=== PATIENT | male | born 1950 | race Caucasian/White ===

== ENCOUNTER → 2016-12-05 | Outpatient (CLI) | payer BC ==
[2016-12-05 12:52] LABS: BASO % 0.4 %; BASO ABS # 0.02 K/uL (0-0.2); COMPLETE YES; EOS % 1.2 %; HEMATOCRIT 41.1 % (42-52); IG% 0.2 %; LYMPH % 31.2 %; LYMPH ABS # 1.76 K/uL (1.2-3.4); MEAN CORPUSCULAR HEMOGLOBIN 27.2 pg (25-34); MEAN CORPUSCULAR HGB CONC 34.1 g/dl (32-36); MEAN PLATELET VOLUME 9.2 fL (7.4-10.4); MONO % 6.9 %; NEUT % 60.1 %; PLATELET COUNT 203 K/uL (130-400); RED BLOOD COUNT 5.14 M/uL (4.7-6.1); WHITE BLOOD COUNT 5.65 K/uL (4.8-10.8)
[2016-12-05 12:53] LABS: URINE APPEARANCE CLEAR (CLEAR); URINE BILIRUBIN NEG (NEG); URINE COLOR YELLOW; URINE EPITHELIAL CELL AUTO 0-5 /lpf (0-5); URINE NITRITE NEG (NEG); URINE SPECIFIC GRAVITY 1.021 (1.000-1.030); UROBILINOGEN NEG (NEG)
[2016-12-05 12:57] LABS: MANUAL MICROSCOPIC REQUIRED? NO; REVIEW REQ? YES
[2016-12-05 18:06] LABS: ALT/SGPT 26 U/L (12-78); BLOOD UREA NITROGEN 13 mg/dl (7-18); BUN/CREATININE RATIO 12.5 (10-20); CALCIUM 8.7 mg/dl (8.5-10.1); CARBON DIOXIDE 26 mmol/L (21-32); CHLORIDE 104 mmol/L (98-107); CHOLESTEROL 141 mg/dl (0-200); GLUCOSE 110 mg/dl (70-99); POTASSIUM 3.4 mmol/L (3.5-5.1); SODIUM 141 mmol/L (136-145); TRIGLYCERIDES 133 mg/dl (0-150); VERY LOW DENSITY LIPOPROT CALC 27 mg/dl
[2016-12-05 18:11] LABS: ALB/GLOB RATIO 1.1 (0.9-2); ALKALINE PHOSPHATASE 67 U/L (45-117); AST/SGOT 21 U/L (15-37); CHOLESTEROL/HDL RATIO 3.1; HDL CHOLESTEROL 45 mg/dl; LDL CHOLESTEROL CALCULATED 69 mg/dl
== END | disposition home or self-care (01) ==
LOC: C.LABBFT 11:17
PROVIDERS: ATTEND Internal Medicine Pulmonary Disease
DX: Z12.5 Encounter for screening for malignant neoplasm of prostate (principal); M50.90 Cervical disc disorder, unspecified, unspecified cervical region; E78.5 Hyperlipidemia, unspecified; I10 Essential (primary) hypertension

== ENCOUNTER → 2017-05-14 | Outpatient (CLI) | payer BC ==
--- NOTE | 2017-05-14 17:56 | DIAGNOSTIC IMAGING REPORT ---
MRI OF THE RIGHT HIP WITHOUT CONTRAST CLINICAL HISTORY: Right hip pain. Evaluate for osteoarthritis or avascular necrosis. COMPARISON STUDY: Pelvis and right hip radiographs May 09, 2017. TECHNIQUE: Utilizing a 1.5 Jacqui magnet and dedicated coil, multiplanar, multiecho imaging of the right hip was performed without intravenous or intraarticular contrast. FINDINGS: The sacroiliac joints and symphysis pubis are intact. No mass or fluid collection is shown within the pelvis. There is no pelvic lymphadenopathy. No abnormality bladder is identified. Note is made of a 2.5 cm T2 hyperintense lesion within the medial aspect of the right iliac bone adjacent to the sacroiliac joint. This is indeterminate but low suspicion. There is no suspicious marrow replacement. There is no evidence of avascular necrosis. There is moderate chondrosis of the right hip with mild subchondral signal abnormality within the right femoral head and acetabulum consistent with osteoarthritis. There is no left hip joint effusion. There is a trace right hip joint effusion. The acetabular labrum is suboptimally assessed on this nonarthrogram exam. IMPRESSION: 1. Moderate chondrosis with subchondral signal abnormality within the right acetabulum and femoral head consistent with osteoarthritis. 2. No fracture or evidence of avascular necrosis. 3. Trace right hip joint effusion. Electronically signed by: Abad Briceno M.D. 05/14/2017 5:55 PM Dictated Date/Time: 05/14/2017 3:53 PM
== END | disposition home or self-care (01) ==
LOC: C.MRIBC 14:06
PROVIDERS: ATTEND Orthopaedic Surgery Sports Medicine
DX: M25.551 Pain in right hip (principal)

== ENCOUNTER → 2017-05-23 | Outpatient (CLI) | payer BC ==
--- NOTE | 2017-05-23 12:31 | DIAGNOSTIC IMAGING REPORT ---
RIGHT HIP INJECTION UNDER FLUOROSCOPIC GUIDANCE CLINICAL HISTORY: Degenerative joint disease. Steroid injection. PROCEDURE: The risks, benefits, and alternatives to the procedure were discussed with the patient. Written informed consent was obtained. The patient was placed supine on the fluoroscopy table, and a right hip injection was performed under fluoroscopic guidance. The area was prepped and draped in the usual sterile fashion. The skin and soft tissues anesthetized with local 1% lidocaine. The right hip joint was accessed utilizing a 22-gauge needle, and intra-articular positioning was confirmed by injecting a small volume of Optiray 300. The prescribed dosage of 8 cc of 0.5% bupivacaine and 2 cc of betamethasone was then injected into the joint space. The procedure was well tolerated and without immediate complication. The patient left department in satisfactory condition. FLUOROSCOPY TIME: 14 seconds IMPRESSION: Successful steroid injection of the right hip under fluoroscopic guidance. Electronically signed by: Enzo Wilson M.D. 05/23/2017 12:29 PM Dictated Date/Time: 05/23/2017 12:28 PM
== END | disposition home or self-care (01) ==
LOC: C.RADBC 10:09
PROVIDERS: ATTEND Orthopaedic Surgery Sports Medicine
DX: M16.11 Unilateral primary osteoarthritis, right hip (principal)

== ENCOUNTER → 2017-10-16 | Outpatient (CLI) | payer BC ==
--- NOTE | 2017-10-16 13:30 | DIAGNOSTIC IMAGING REPORT ---
R INJ MAJOR JNT SHLDR,HIP,KNEE CLINICAL HISTORY: RIGHT HIP DJDpain COMPARISON STUDY: 05/23/2017 FLUOROSCOPY TIME: 11 seconds. FINDINGS: Following informed consent and description of procedure, initial placement of the needle confirmed an extra-articular location. This is followed by repositioning the needle with a test injection confirming its intra-articular location. This is followed by a therapeutic injection. There are no complications. IMPRESSION: Successful therapeutic injection right hip. No complications.. The above report was generated using voice recognition software. It may contain grammatical, syntax or spelling errors. Electronically signed by: Jeb Louis M.D. 10/16/2017 1:28 PM Dictated Date/Time: 10/16/2017 1:27 PM
== END | disposition home or self-care (01) ==
LOC: C.RADBC 12:22
PROVIDERS: ATTEND Orthopaedic Surgery Sports Medicine
DX: M16.11 Unilateral primary osteoarthritis, right hip (principal)

== ENCOUNTER → 2017-12-24 | Outpatient (CLI) | payer OTHER ==
--- NOTE | 2017-12-25 09:05 | DIAGNOSTIC IMAGING REPORT ---
R INJ MAJOR JNT SHLDR,HIP,KNEE FLUOROSCOPY TIME: 16 seconds HISTORY: Right hip pain.. PROCEDURE: After obtaining written informed consent, the patient was placed supine on the fluoroscopy table. A suitable site for needle insertion was marked using fluoroscopic guidance. The right hip was prepped and draped in the usual sterile fashion. 1% lidocaine was used for skin, subcutaneous and deep soft tissue anesthesia. Under intermittent fluoroscopic guidance, a 22 gauge x 3.5 inch spinal needle was inserted into the right hip joint. 2 cc of Optiray 300 was injected to confirm the intra-articular location. This is followed by a mixture of 5cc of 0.5% bupivacaine and 2 cc of betamethasone at the request of the referring physician. The needle was then removed. There were no apparent complications. IMPRESSION: Fluoroscopic-guided right hip steroid injection without immediate complication. The above report was generated using voice recognition software. It may contain grammatical, syntax or spelling errors. Electronically signed by: Frantz Catalan M.D. 12/25/2017 9:04 AM Dictated Date/Time: 12/25/2017 9:02 AM
== END | disposition home or self-care (01) ==
LOC: C.RADBC 10:15
PROVIDERS: ATTEND Orthopaedic Surgery Sports Medicine
DX: M16.11 Unilateral primary osteoarthritis, right hip (principal)

== ENCOUNTER 2022-09-26 05:02 | Observation (INO) ==
--- NOTE | 2022-08-23 09:24 | PAT Medication Instructions ---
Medication Instructions Date of Service August 23, 2022 Home Medications Medication Instructions Recorded atorvastatin 40 mg tablet 40 mg PO HS #90 tabs 06/19/22 ciclopirox 8 % topical solution 1 applic topical DAILY 4 weeks 06/19/22 #6.6 mL losartan 100 1 tab PO QAM #90 tabs 06/19/22 mg-hydrochlorothiazide 25 mg tablet aspirin 81 mg tablet 81 mg PO HS coenzyme Q10 200 mg capsule 200 mg PO HS atorvastatin 40 mg tablet 40 mg PO HS ciclopirox 8 % topical solution 1 applic topical DAILY losartan 100 mg-hydrochlorothiazide 25 mg tablet 1 tab PO QAM STOP taking 2 weeks before surgery coenzyme Q10 200 mg capsule 200 mg PO HS STOP taking 24 hours before surgery ciclopirox 8 % topical solution 1 applic topical DAILY DO NOT take the morning of surgery losartan 100 mg-hydrochlorothiazide 25 mg tablet 1 tab PO QAM Take evening before surgery aspirin 81 mg tablet 81 mg PO HS (unless directed otherwise by surgeon) atorvastatin 40 mg tablet 40 mg PO HS Other Notes NOTHING TO EAT OR DRINK AFTER MIDNIGHT. If you have any questions please call us at [phone] or [phone] or [phone] or [phone]
--- NOTE | 2022-08-31 10:52 | Anesthesiology Consultation ---
Date of Service August 31, 2022 Assessment & Plan (1) Encounter for pre-operative examination: - COVID screening: Per assessment on 08/31: No known COVID-19 positive contacts or current COVID-19 related symptoms (does have chronic, unchanged non- productive cough x 1+ years, possibly medication related). Travel screen negative. Patient vaccinated. At surgeon discretion if preop Covid testing being done. - Outpatient joint assessment: Pt currently scheduled for inpatient pathway. If surgeon requests review for outpatient joint pathway, patient is not recommended candidate for outpatient joint program from anesthesia standpoint. - Thoracic surgery telemedicine visit (07/31/22): " Denies having any new symptoms or medical problems.. Due for hip replacement 09/26.. Returns for lung nodule surveillance (CT chest updated).. Left lower lobe lung mass associated with smaller lung nodules along with some benign-appearing cysts.. PET/CT imaging was negative for any significant FDG/avidity in December 2019. Updated 1 year interval imaging (July 2021) shows overall stability. The continues to suggest benign disease.. Well-preserved baseline performance status. He has some physical limitation secondary to a chronically diseased right hip. Can climb a couple or more floors of stairs per his own admission. Well-preserved pulmonary function studies.. The left lower lobe lung mass is likely a benign Sophie Viraj, although without formal biopsy or surgical resection this cannot be confirmed with certainty. His chronic (1+ year history) cough is possibly related, but could also be unrelated.. I spoke with our [facility] pharmacist after completing this visit today and he told me that losartan is not very likely to cause a cough, although possible). I called [facility] and his back to let them know.. Plan.. Repeat CT chest in 1 year" - Cardiology office visit (08/24/21): "The patient is stable from a cardiovascular standpoint. Demonstrates excellent control of his blood pressure cholesterol values. We have discussed the need for a dobutamine stress echocardiogram due to severe coronary artery calcifications and as a preoperati ve evaluation.. Plan.. Continue current medications... Continue physical activity as able.. Dobutamine stress echocardiogram.. Follow-up if the above abnormal." DSE performed 09/12/21 was unremarkable. F/U PRN recommended* Chart Review Chart Review: Acceptable Risk for Surgery and Patient seen in Pre Admission Testing Teaching & Discussion Pre-Anesthesia Teaching/Discussion Notes: Instructed NPO after midnight before surgery,except medications with 15 cc of water. Medication instructions provided according to the PAT guidelines. History Surgery Operation Date: 09/26/22 12:30 Proposed Procedures p Right Total Hip Arthroplasty - Butch Patrick MD Height/Weight Height: 6 ft Weight: 114.7 kg Allergies Allergy/AdvReac Type Severity Reaction Status Date / Time No Known Drug Allergies Allergy Verified 08/23/22 07:56 Medications Home Medications Medication Instructions Recorded Confirmed Last Taken aspirin 81 mg tablet 81 mg PO HS 06/16/19 08/23/22 08/17/20 08:00 coenzyme Q10 200 mg capsule 200 mg PO HS 06/16/19 08/23/22 08/18/20 21:00 atorvastatin 40 mg tablet 40 mg PO HS #90 tabs 06/19/22 08/23/22 Unknown ciclopirox 8 % topical solution 1 applic topical DAILY 4 weeks 06/19/22 08/23/22 Unknown #6.6 mL losartan 100 1 tab PO QAM #90 tabs 06/19/22 08/23/22 Unknown mg-hydrochlorothiazide 25 mg tablet Past Medical History Medical History Coronary artery calcification Seen by [facility] cardiology 08/2021 > stress echo unremarkable, f/u cardio PRN Hearing deficit Hyperlipidemia Hypertension Osteoarthritis of hip Prediabetes 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, "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" Pulmonary nodules Multiple, followed by [facility] pul Exercise / Class Metabolic Activity II 4-5 Yardwork/Stairs/Walk up hill (one FS (no CP, no SOB)) Past Family History Family History Father Lymphoma Unknown Dyslipidemia Other No family history of adverse response to anesthesia Past Surgical History Surgical History H/O elbow surgery Left History of colonoscopy with polypectomy History of foot surgery left--plantar fasciitis History of root canal procedure History of wisdom tooth extraction Past Anesthesia History No Hx of Anesthesia Complications and No Family Hx of Anesthesia Complications History of PONV No Hx of PONV and No Hx of Motion Sickness Social History Smoking Status: Former smoker tobacco type: cigarettes and smokeless tobacco Do You Dip or Chew Tobacco: Yes (Advised none DOS) Smoking End Date: Quit 1987 Hx Alcohol Use: Yes Alcohol type: beer alcohol intake frequency: 3 or more drinks per day (2-3 drinks/day) Hx Substance Use: No substance use type: does not use Review of Systems Chronic cough x 1+ years, possible losartan related. Patient denies chest pain, shortness of breath, dyspnea on exertion, fever, chills, wheezing, palpitations. Physical Exam Vital Signs VITALS BP 128/88 P 66 TEMP WNL SP02 95%RA RESP 18 PHYSICAL Full cervical extension range of motion. Full TMJ range of motion. TMD 3 finger breaths Mallampati Score 3 Dentition: right lower molar (recent chipped tooth repaired) Lungs: clear throughout to auscultation Cardiac: regular rate and rhythm, no murmurs noted Spine: normal Carotid arteries: negative bruit Extremities: no edema Lab Results Anesthesia Preop Results Results Anesthesia Widget: WBC 6.56 K/ul (4.8-10.8) 08/31/22 Hgb 14.9 g/dl (14.0-18.0) 08/31/22 Hct 44.6 % (40.1-51.0) 08/31/22 Plt 217 K/uL (130-400) 08/31/22 Na 141 mmol/L (136-145) 08/31/22 K 4.2 mmol/L (3.5-5.1) 08/31/22 Cl 105 mmol/L (98-107) 08/31/22 CO2 28 mmol/L (21-32) 08/31/22 BUN 14 mg/dl (6-23) 08/31/22 Creat 0.91 mg/dl (0.6-1.4) 08/31/22 Glucose Level 126 mg/dl (70-99(Fasting)) H 08/31/22 PT 10.7 Seconds (9.0-12.0) 08/31/22 PTT 25.3 Seconds (21.0-31.0) 08/31/22 INR 1.0 (0.9-1.1) 08/31/22 Blood Type O Positive 08/31/22 Antibody Screen NEGATIVE 08/31/22 Testing Laboratory Results 06/12/22 HGBA1C 6.2% Electrocardiogram Date: 08/31/22 NSR at 64bpm. NS TWA. Stress Test Date: 09/11/21 Type: DSE Negative DSE/dobutamine ECG for ischemia at 87% MPHR. No chest pain. Echo with EF 60 to 64%. No regional motion abnormality. Mild concentric LVH. No significant valvular disease. Other Testing Chest CT (07/24/22) Stable 5.2 cm left lower lobe hematoma. Stable to slightly larger 1.2 cm right lower lobe nodule. Stable additional sub 6 mm pulmonary nodules. Ascending aortic ectasia at 4.0 cm at the level main pulmonary artery. Calcified granuloma in the right lower lobe. Moderate to severe coronary artery calcification. No pneumothorax, focal consolidation or pleural effusion. COVID-19 Risk Screen Screening Information COVID-19 Screen Date: 08/31/22 Exposure 21 Days Family/Household +COVID Last 21 Days: No Exposure 10 Days Any COVID Exposure Last 10 Days: No Symptoms Last 10 Days Experienced COVID Sx Last 10 Days: No + COVID 0-90 Days COVID + in Last 0-90 Days: No
--- NOTE | 2022-09-25 08:01 | History and Physical Report ---
DATE OF ADMISSION: 09/26/2022. CHIEF COMPLAINT: Persistent and progressive right hip pain and discomfort. HISTORY OF PRESENT ILLNESS: The patient is a 72-year-old gentleman I have been following for years f or right hip pain and discomfort and arthritis. He has been getting injections about every 6 months for the past several years. They helped for about 2-3 months. He describes mostly groin pain. He i s an avid golfer and having more trouble doing that. He limps more as the day goes on. He describes groin and thigh pain. No numbness or radicular type symptoms. He would like to have his hip fixed at this time. PAST MEDICAL HISTORY: 1. Hypertension. 2. Elevated cholesterol. 3. Lung hematoma. 4. Prediabetes. 5. Mild obesity with BMI of 34. 6. Low back pain/sciatica. PAST SURGICAL HISTORY: Includes: 1. Foot surgery. 2. Oral surgery. 3. Colonoscopy. ALLERGIES: None. CURRENT MEDICATIONS: Include: 1. Aspirin 81 mg daily. 2. Atorvastatin. 3. Coenzyme Q10. 4. Losartan/hydrochlorothiazide. 5. Triamcinolone injections. SOCIAL HISTORY: A 72-year-old male. A former athlete. Drinks several beers per day. Chews tobacco . FAMILY HISTORY: Noncontributory. REVIEW OF SYSTEMS: Significant for diabetes. No chest pain or shortness of breath. No history of D VT or PE. No known bleeding problems. PHYSICAL EXAMINATION: GENERAL: Shows a pleasant middle-aged male. Looks to be in pretty good health. HEENT: Benign. NECK: Supple. No lymphadenopathy. LUNGS: Clear to auscultation. HEART: Has a regular rate and rhythm. ABDOMEN: Soft, nontender, nondistended. EXTREMITIES: Grossly neurovascularly intact except as follows: Examination of the right hip reveals the patient walks with a slightly antalgic gait. Leg lengths clinically appear pretty equal. He rosado s got pain with any type of hip motion and does have stiffness and can internally rotate to about 5 t o 10 degrees. This recreates pain. Negative straight leg raise. No knee effusion. X-RAYS: X-rays of the right hip were reviewed. They show moderately advanced arthritis. He has got about 50% loss of his joint space. Fairly concentric disease. ASSESSMENT: A 72-year-old male with a long history of right hip pain and discomfort and slowly gradu ally progressive arthritis. Temporary response to injection. He has been dealing with this for year s. X-rays are terrible, but it does seem to be coming from his hip and he would like his hip fixed. It is affecting his golf game and his ability to do an enjoyable recreation. PLAN: We will take him to the operating room and do right total hip replacement. The risks and bene fits of this procedure were explained to the patient and include, but are not limited to DVT, PE, ondina th, infection, neurological injury, vascular injury, bleeding problem, pain, limited range of motion, stiffness, incomplete relief of symptoms, need for further surgery in the future, fracture, leg mary th inequality, nerve palsy, etc. The patient understands and desires to proceed. Informed consent w as obtained. The patient does drink about 15 beers per week. We will likely use some DVT prophylaxis in the [facility]. He is planning to be discharged to home with home health and his 's assistance. Job ID: [id number]
[2022-09-26] MEDS ORDERED: CeleBREX 200 MG CAP PO SCH (06:00)
[2022-09-26] MEDS ORDERED: LR 60ML/HR IV SCH (06:00)
[2022-09-26] MEDS ORDERED: METOCLOPRAMIDE HCL 10 MG TABLET PO SCH (06:00)
[2022-09-26] MEDS ORDERED: ACETAMINOPHEN 500 MG TAB PO SCH (06:00)
[2022-09-26] MEDS ORDERED: LR 500ML BOLUS, THEN 15ML/HR IV SCH (06:00)
[2022-09-26] MEDS ORDERED: FAMOTIDINE 20 MG TAB PO SCH (06:00)
[2022-09-26] MEDS ORDERED: TRANEXAMIC ACID 1,000 MG **IV Pre-op IV SCH (06:00)
[2022-09-26] MEDS ORDERED: BUPIVACAINE 0.5 % 5 MG/1 ML PF 10ML VIAL ONE (06:30)
[2022-09-26] MEDS ORDERED: EPINEPHrine INJ 1 MG/ML AMP ONE (06:41)
[2022-09-26] MEDS ORDERED: BUPIVACAINE 0.5 % 5 MG/1 ML MPF 30ML VIAL ONE (06:41)
--- NOTE | 2022-09-26 06:57 | History & Physical Bridge Note ---
Date of Service September 26, 2022 History & Physical Bridge Note I have examined the patient, reviewed the History & Physical and in the interval since the performance of the History & Physical I have noted the following changes of clinical significance: no changes noted
[2022-09-26] MEDS: ceFAZolin 2000MG 2,000 MG/15 ML SYR IV SCH ×4 (07:02→22:33)
[2022-09-26] MEDS ORDERED: LACTATED RINGER'S 500 ML IV PRN (07:06)
[2022-09-26] MEDS ORDERED: MoRPHine SULFATE PF 1 MG/ML 10 ML AMP/VIAL INT SPINAL ONE (07:06)
[2022-09-26] MEDS ORDERED: NALOXONE HCL 0.08 MG in SYRINGE 1.8 ML IV PRN (07:06)
[2022-09-26] MEDS ORDERED: NALOXONE HCL 1 MG in SODIUM CHLORIDE 0.9% 1000ML 1,000 ML IV PRN (07:06)
[2022-09-26] MEDS ORDERED: ePHEDrine sulfate 50 MG/ML AMP IV PRN (07:06)
[2022-09-26] MEDS ORDERED: diphenhydrAMINE 50 MG/ML VIAL IV PRN (07:06)
[2022-09-26] MEDS ORDERED: MEPERIDINE HCL 25 MG/ML CARP/VIAL IV PRN (07:06)
[2022-09-26] MEDS ORDERED: NALOXONE HCL 0.4 MG/1 ML VIAL/CARP IV PRN ×2 (07:06→10:24)
[2022-09-26] MEDS ORDERED: NALBUPHINE HCL INJ 10 MG/ML AMP IV PRN (07:06)
[2022-09-26] MEDS ORDERED: ONDANSETRON INJ 2 MG/ML 2 ML VIAL IV PRN ×2 (07:06→10:24)
[2022-09-26] MEDS ORDERED: NO NARCOTICS OR SEDATIVES SCH (07:15)
[2022-09-26] MEDS ORDERED: DC INTRASPINAL MORPHINE SCH (07:15)
[2022-09-26] MEDS ORDERED: SODIUM CHLORIDE 0.9% 1000ML 1,000 ML IV SCH (07:15)
--- NOTE | 2022-09-26 08:57 | Operative Report ---
PG Post Operative Report Pre & Post Diagnosis Operation Date: 09/26/22 07:00 Pre-Op Diagnosis: Right Hip Advanced Degenerative Joint Disease Post-Op Diagnosis: Right Hip Advanced Degenerative Joint Disease I identified the patient and participated in the time-out.: Yes Procedure Operation Date: 09/26/22 07:00 Actual Procedures p Right Total Hip Arthroplasty--Uncemented(Right) - Butch aPtrick MD Surgeon Butch Patrick MD Reimbursement Liaison None Estimated Blood Loss 200 Findings Consistent with Post-Op Diagnosis Operative findings revealed moderately advanced right hip arthritis. He had this significant chondral disease. Not much eburnation or osteophyte formation. Moderate-sized joint effusion. Fluids 1300 cc Specimens Right femoral head sent for pathology Drains None Anesthesia Type Spinal MAC Complications none Disposition Accompanied Patient To Recovery: No Indications Patient is a 72-year-old gentleman an avid golfer whose had a several year history of progressive increased right hip pain discomfort describes gotten worse over time. We have been treating conservatively for the past 5 to 6 years which is become less successful over time. Really been affecting his ability to mobilize and play golf and other recreational activities. Temporary sponsor through intra-articular injection. He elected proceed with surgical treatment. Description of Procedure Operative implants consist of: 1. Biomet G7 size 56 mm acetabular shell. 2. 6.5 cancellous acetabular screws 135 mm length and 125 mm length. 3. Wolverton hole personal assistant. 4. Highly cross-linked polyethylene liner with a 56 mm outer diam and 36 mm inner diameter 5. DePuy Corail size 13 KLA femoral stem. 6. +8.5/36 mm ceramic articular ball. The patient was taken the operating, identified, and placed on the operating table supine position. All contact areas were properly padded. IV antibiotics tried by anesthesia team. Spinal anesthetic and been implemented holding area. Field cath was placed in sterile fashion. The patient was then placed in the left lateral decubitus position. Axillary roll was placed. Stulberg hip positioner was used for positioning. Right hip and leg were then prepped and draped in usual sterile fashion. A posterior lateral puncture of the right hip was then performed through a curvilinear incision centered over the greater trochanter. Sharp dissection was carried through subcutaneous tissue down over the IT band gluteal fascia the IT band gluteal fascia incised longitudinally in line with skin incision. The underlying greater bursa was excised. The piriformis and external rotators along with the posterior hip joint capsule released from the posterior aspect hip joint as a single layer. Great care was taken throughout the procedure protect the sciatic nerve at all times. The hip was internally rotated and dislocated. A femoral neck osteotomy cut was made with Final Cut about 2 cm above the lesser trochanter. Femoral head was removed and sent for pathology. The femur was retracted anteriorly. Attention drawn the acetabulum. The acetabular labrum was excised. Pulmonary fat was excised. Sequential reaming the acetabular then performed begin with size 45 and progressing up to a 55. I did reamed a little bit with a 56 reamer and then placed a 56 mm Biomet G7 acetabular shell in about 40 degrees lateral opening and 20 degrees of anteversion. It was fixed with two 6.5 cancellous acetabular screws. Trial liner was placed. Attention drawn the femur. The proximal femur was entered with a [employer] cutter followed by canal finder. I then broached beginning size 8 and progressing up to a 13. Got excellent fit at 13. I trialed the hip and the +5 articular ball was stable but the soft tissue tension was still pretty lax so we elected place an 8.5 ball. Hip was fully stable full extension and external rotation flexion to 90 degrees internal rotation about 50 degrees. I did elect to place a escamilla on the liner in order to maximize his stability in flexion due to his repeated bending he does with golf activities. All trial liners were removed and all trial implants were removed. Wolverton hole personal assistant was placed. Highly cross-linked polyethylene liner was then placed with a escamilla placed inferior and posterior. A 13 KLA femoral stem was impacted in position. A +8.5/36 mm ceramic articular ball was placed. Hip was located once again found to be stable. Attention drawn toward closing. The wound was irrigated cosigns pulsatile lavage solution. I did inject locally with 60 cc of half percent Marcaine with epinephrine. The posterior hip joint capsule and external rotators were repaired as a single layer through drill holes in the posterior trochanter with #2 Tycron suture. The IT band gluteal fascia then closed in 1 PDS suture in a running fashion for subcutaneous tissue then closed with 2 layers of the deep layer #1 Vicryl suture subcutaneous tissues with 2-0 Dexon suture in a buried interrupted fashion. Skin was closed with skin taylor. Leg was then cleaned and dried and sterile dressed with Xeroform, 4 x 4's, ABD pad, foam tape was applied. Patient then transferred to the recovery room in stable condition. Patient tolerated procedure well and there were no complications. I attest to the content of the Intraoperative Record and any orders documented therein. Any exceptions are noted below.
--- NOTE | 2022-09-26 09:36 | Anesthesiology Progress Note ---
Date of Service September 26, 2022 Anesthesia Post Procedure Vital Signs Vital Signs: Temp Pulse Pulse Resp BP Pulse Ox O2 Del Method 09/26/22 09:30 98.1 F 89 14 105/60 95 Nasal Cannula 09/26/22 09:20 94 H 16 99/60 L 94 Room Air 09/26/22 09:10 93 H 19 94/64 L 96 Oxymask 09/26/22 09:00 95 H 12 100/69 95 Oxymask 09/26/22 08:51 97.3 F L 101 H 15 90/52 L 97 Oxymask 09/26/22 05:32 98.1 F 91 H 18 129/84 94 Room Air O2 Flow Rate 09/26/22 09:30 2 09/26/22 09:20 09/26/22 09:10 6 09/26/22 09:00 6 09/26/22 08:51 6 09/26/22 05:32 Pain Intensity Right Hip: Pain Intensity: 0 Transfer of Care Handoff Completed per policy Notes Mental Status: alert / awake / arousable and participated in evaluation Patient Amnestic to Procedure: Yes Nausea / Vomiting: adequately controlled Pain: adequately controlled Airway Patency, RR, SpO2: stable & adequate BP & HR: stable & adequate Hydration State: stable & adequate Neuraxial Anesthesia: was administered and sensory block is resolving Anesthetic Complications: no major complications apparent and Pt Satisfied with anesthetic care
[2022-09-26] MEDS ORDERED: DOCUSATE SODIUM 100 MG CAP PO SCH (10:24)
[2022-09-26] MEDS ORDERED: bisacodyL 10 MG SUPP PR PRN (10:24)
[2022-09-26] MEDS ORDERED: MAGNESIUM HYDROXIDE SUSP 30 ML UDC PO PRN (10:24)
[2022-09-26] MEDS ORDERED: ALUMINUM/MAGNESIUM SUSP 30 ML UDC PO PRN (10:24)
[2022-09-26] MEDS ORDERED: traMADol HCL 50 MG TABLET PO PRN (11:30)
[2022-09-26] MEDS: MULTIVITAMIN TAB PO SCH (11:58)
[2022-09-26] MEDS: ASPIRIN 81 MG ECTAB PO SCH ×2 (11:58→21:25)
[2022-09-26] MEDS: THIAMINE HCL 100 MG TAB PO SCH (11:59)
[2022-09-26] MEDS: DOCUSATE SODIUM/SENNA 50/8.6MG TAB PO SCH ×2 (11:59→21:23)
[2022-09-26] MEDS: FOLIC ACID 1 MG TAB PO SCH (11:59)
[2022-09-26] MEDS: TAMSULOSIN HCL 0.4 MG CAP PO SCH (11:59)
[2022-09-26] MEDS: LOSARTAN/HCTZ 50/12.5MG TAB PO SCH (11:59)
[2022-09-26] MEDS: SODIUM CHLORIDE 0.9% 1000ML 1,000 ML IV SCH ×2 (12:00→20:30)
[2022-09-26] MEDS: KETOROLAC TROMETHAMINE 15 MG/ML VIAL IV SCH ×3 (12:23→22:32)
[2022-09-26] MEDS: ACETAMINOPHEN 500 MG TAB PO SCH ×2 (13:24→21:23)
--- NOTE | 2022-09-26 13:43 | XRay Report ---
AP PELVIS, CROSSTABLE LATERAL RIGHT HIP History: Right total hip arthroplasty. Degenerative arthritis. Postop. FINDINGS: The patient is status post a right total hip arthroplasty. The hardware is intact. No fract ure or dislocation. Skin taylor are in place. IMPRESSION: Right total hip arthroplasty. No evidence for hardware complication ACT 112: Negative or not required by law. Electronically signed by: Samson Romo M.D. 09/26/2022 1:42 PM
[2022-09-26] MEDS ORDERED: TRANEXAMIC ACID / 0.7% NACL 1,000 MG/100 ML BAG IV SCH (15:00)
[2022-09-26] MEDS: ASCORBIC ACID 500 MG TAB PO SCH (16:06)
--- NOTE | 2022-09-26 17:35 | Progress Notes ---
SUBJECTIVE: This is a 72-year-old gentleman postop from a right hip replacement. He is doing well. He is really not having any pain yet. No chest pain or shortness of breath. Not feeling dizzy or l ightheaded. OBJECTIVE: VITAL SIGNS: Temperature 36.4. Vital signs are stable. GENERAL: Shows a pleasant middle-aged male. He is lying in bed and looks pretty comfortable. LUNGS: Clear to auscultation. HEART: Regular rate and rhythm. ABDOMEN: Soft, nontender, nondistended. EXTREMITIES: Grossly neurovascularly intact except as follows. Examination of the right hip and leg reveals the leg lengths to be equal. Dressing is clean, dry, an d intact. Thigh is soft and supple. He is neurologically intact. He can dorsiflex and plantarflex his foot appropriately. X-RAYS: X-rays of the right hip from recovery room are reviewed. It shows a right uncemented hip re placement. Components looked to be in good position. No signs of problems. ASSESSMENT: A 72-year-old gentleman, postoperative from a right hip replacement, doing well. Pain i s controlled. Hip is located. He is neurologically intact. PLAN: 1. DVT prophylaxis includes thigh-high TEDs, SCDs, and aspirin twice a day. 2. PT/OT, weightbear as tolerated. Right total hip protocol. 3. Pain control, doing okay with current pain regimen. 4. IV antibiotics x24 hours. 5. Disposition: Plan to discharge to home with some home health once adequately recovered and medic ally stable. Job ID: [id number]
[2022-09-26] MEDS ORDERED: NON-FORMULARY MEDICATION (Coenzyme Q10 200 mg capsule) PO SCH (21:00)
[2022-09-26] MEDS ORDERED: SENNA 8.6 MG TAB PO SCH (21:00)
[2022-09-26] MEDS: ATORVASTATIN 40 MG TAB PO SCH (21:24)
[2022-09-27] MEDS ORDERED: HYDROmorphone INJ 0.5 MG/0.5 ML SYR IV PRN (01:07)
[2022-09-27] MEDS ORDERED: METOCLOPRAMIDE HCL INJ 5 MG/ML 2 ML VIAL IV PRN (01:07)
[2022-09-27] MEDS ORDERED: traMADol HCL 50 MG TABLET PO PRN (01:07)
[2022-09-27] MEDS ORDERED: chlordiazePOXIDE HCl 25 MG CAP PO PRN (01:07)
[2022-09-27] MEDS: KETOROLAC TROMETHAMINE 15 MG/ML VIAL IV SCH ×4 (06:05→23:20)
[2022-09-27] MEDS: ACETAMINOPHEN 500 MG TAB PO SCH ×3 (06:06→21:13)
--- NOTE | 2022-09-27 07:58 | Progress Notes ---
DATE OF NOTE: 09/27/2022 SUBJECTIVE: A 72-year-old gentleman postoperative day 1 from right hip replacement. He is doing pre tty well. Had a pretty good night. Really not much pain at all while lying in bed. Having difficul ty lifting his leg. OBJECTIVE: VITAL SIGNS: Temperature 36.7. Vital signs are stable. GENERAL: Shows a pleasant, elderly male. Had to wake him this morning. He is lying in bed, looks p retty comfortable. EXTREMITIES: Examination of the right hip reveals the leg to be well aligned. Dressing is clean, dr y and intact. He can dorsiflex and plantarflex his foot appropriately. He is neurologically intact. LABORATORY DATA: Labs are pending. ASSESSMENT: A 72-year-old gentleman, postoperative day 1 from a right hip replacement, doing pretty well. Pain is controlled. He is neurologically intact. Hip is located. PLAN: 1. DVT prophylaxis includes thigh-high TEDs, SCDs, and aspirin twice a day. 2. OT, weightbear as tolerated. Right total hip protocol. 3. Pain control, doing okay with current pain regimen. 4. Disposition: The plan is to discharge to home with some home health. We will have to see how he does in therapy today. Job ID: [id number]
[2022-09-27] MEDS ORDERED: dexAMETHasone 10 MG in SYRINGE 0 ML IV SCH (08:00)
[2022-09-27] MEDS: ASPIRIN 81 MG ECTAB PO SCH ×2 (08:43→20:10)
[2022-09-27] MEDS: THIAMINE HCL 100 MG TAB PO SCH (08:44)
[2022-09-27] MEDS: TAMSULOSIN HCL 0.4 MG CAP PO SCH (08:44)
[2022-09-27] MEDS: LOSARTAN/HCTZ 50/12.5MG TAB PO SCH ×2 (08:44→12:11)
[2022-09-27] MEDS: MULTIVITAMIN TAB PO SCH (08:44)
[2022-09-27] MEDS: DOCUSATE SODIUM/SENNA 50/8.6MG TAB PO SCH ×2 (08:44→20:10)
[2022-09-27] MEDS: FOLIC ACID 1 MG TAB PO SCH (08:44)
[2022-09-27] MEDS: ASCORBIC ACID 500 MG TAB PO SCH ×2 (08:45→17:19)
[2022-09-27 09:39] LABS: Basophils # (auto) 0.02 K/uL (0-0.2); Basophils % (auto) 0.2 %; Eosinophils # (auto) 0.07 K/uL (0-0.50); Eosinophils % (auto) 0.8 %; Hematocrit (blood only) 35.2 % (40.1-51.0); Hemoglobin 11.6 g/dl (14.0-18.0); Immature Granulocytes # (auto) 0.04 K/uL (0.00-0.02); Immature Granulocytes % (auto) 0.5 %; Lymphocytes # (auto) 1.08 K/uL (1.2-3.4); Lymphocytes % (auto) 12.7 %; Mean Corpuscular Hemoglobin 27.2 pg (25.0-34.0); Mean Corpuscular Volume 82.4 fL (80.0-100.0); Mean Platelet Volume 8.7 fL (9.4-12.4); Monocytes # (auto) 0.92 K/uL (0.24-0.82); Monocytes % (auto) 10.8 %; Neutrophils # (auto) 6.36 K/uL (1.4-6.5); Platelet Count 147 K/uL (130-400); RDW Coefficient of Variation 14.4 % (11.5-14.5); RDW Standard Deviation 42.9 fL (36.4-46.3); Red Blood Count 4.27 M/uL (4.63-6.08); White Blood Count 8.49 K/ul (4.8-10.8)
[2022-09-27 10:05] LABS: BUN Creatinine Ratio 17.4 (10-20); Calcium 8.1 mg/dl (8.5-10.1); Creatinine Clr Calc Pharmacy 101.5 ml/min; Est GFR (African American) 101.1 ml/min; Est GFR (Non-African American) 87.2 ml/min; Potassium 3.4 mmol/L (3.5-5.1)
--- NOTE | 2022-09-27 18:38 | Urology Consultation ---
Date of Consultation September 27, 2022 Assessment & Plan (1) Postoperative urinary retention: Plan 72-year-old male who is status post right total hip arthroplasty on 09/26/2022. His catheter was removed this morning but he is unable to void. He was bladder scanned for 1100 cc and straight caths for 1300 cc. I had a long discussion with the patient regarding his postoperative urinary retention. I explained that this is fairly typical after surgery. He wanted to attempt to try to void again which is not unreasonable but I suspect he will fail based on the volume of his initial straight catheterization. I discussed with him and nursing that if he requires another straight catheterization, that they place an indwelling Field catheter. He will likely need several days of decompression and urology can schedule an outpatient void trial next week. I have placed an order for a urinalysis and urine culture to rule out infection as a cause. This can be sent once he requires catheter placement, which I suspect he will Agree with continuing Flomax History of Present Illness Reason for Consultation: Urinary retention Attending Physician: Butch Patrick MD History of Present Illness 72-year-old male who is status post right total hip arthroplasty on 09/26/2022. He developed urinary retention and Field catheter was placed. Review of labs shows a white count of 8.4, creatinine of baseline of 0.86. Patient denies any history of urinary symptoms or seen a urologist prior. He had a catheter postoperatively and then it was removed today. He was unable to urinate. He was bladder scanned for 1100 cc and then straight cathed for 1300 cc per nursing. Allergies Allergy/AdvReac Type Severity Reaction Status Date / Time No Known Drug Allergies Allergy Verified 09/26/22 05:30 Home Medications Medication Instructions Recorded Confirmed Type aspirin 81 mg tablet 81 mg PO HS 06/16/19 09/26/22 History coenzyme Q10 200 mg capsule 200 mg PO HS 06/16/19 09/26/22 History atorvastatin 40 mg tablet 40 mg PO HS #90 tabs 06/19/22 09/26/22 Rx ciclopirox 8 % topical solution 1 applic topical DAILY 4 weeks 06/19/22 09/26/22 Rx #6.6 mL losartan 100 1 tab PO QAM #90 tabs 06/19/22 09/26/22 Rx mg-hydrochlorothiazide 25 mg tablet acetaminophen 500 mg capsule 1,000 mg PO TID Pain #180 caps 12/04/22 12/06/22 Rx aspirin 81 mg tablet,delayed 81 mg PO BID 45 days #90 tabs 09/24/22 09/26/22 Rx release (Eduardo Low Dose Aspirin) ketorolac 10 mg tablet 10 mg PO Q6 Pain 5 days #20 tabs 09/24/22 09/26/22 Rx ondansetron HCl 4 mg tablet 4 mg PO Q6 PRN nausea #20 tabs 09/24/22 09/26/22 Rx sennosides 8.6 mg-docusate sodium 1 tab-cap PO BID 14 days #28 tabs 09/24/22 09/26/22 Rx 50 mg tablet (Senokot-S) tamsulosin 0.4 mg capsule (Flomax) 0.4 mg PO DAILY #7 caps 09/24/22 09/26/22 Rx tramadol 50 mg tablet 50 - 100 mg PO Q6H PRN pain #40 09/24/22 09/26/22 Rx tabs Patient History Medical History Coronary artery calcification Seen by [facility] [place] cardiology 08/2021 > stress echo unremarkable, f/u cardio PRN Hearing deficit Hyperlipidemia Hypertension Osteoarthritis of hip Prediabetes 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[facility] sanches, "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" Pulmonary nodules Multiple, followed by [facility] sanches Surgical History H/O elbow surgery Left History of colonoscopy with polypectomy History of foot surgery left--plantar fasciitis History of root canal procedure History of wisdom tooth extraction Family History Father Lymphoma Unknown Dyslipidemia Other No family history of adverse response to anesthesia Social History Smoking Status: Never smoker Smoking End Date: Quit 1987; Second Hand Exposure: Yes (parents smoked/ smoked); Do You Dip or Chew Tobacco: Yes; Hx Alcohol Use: No Hx Substance Use: No Preferred Language: Divehi Communication Ability: Effective Lavatory Attendant Required: No Beliefs That Will Affect Care: None marital status: Current Living Situation: Spouse current occupational status: retired How many Children do You have: 2 Other Information That Helps Us Care for You: No Feels Safe at Home: Yes Safety Concerns: Feels Safe At This Time Assistive Devices: Cane and Walker Review of Systems Review of Systems: 14 point review of systems negative outside of what is listed above in HPI Physical Exam Physical Exam: General: Alert and oriented, no acute distress HEENT: Normocephalic, mucous membranes moist Pulmonary: Nonlabored respirations Abdomen: Nondistended, soft, nontender Neuro: No gross deficits Skin: Warm, dry, no rashes noted Results & Data ([facility]) Vital Signs (Past 12 Hours) Vital Signs Temp Pulse Resp BP BP Pulse Ox O2 Del Method 09/27/22 14:43 37.0 C 87 16 139/84 94 Room Air 09/27/22 08:48 78 97/63 L 91 Room Air 09/27/22 07:25 36.7 C 76 16 107/70 96 Nasal Cannula O2 Flow Rate 09/27/22 14:43 09/27/22 08:48 09/27/22 07:25 2 PG Care Time/CCT Total # of Minutes Spent Total Time Spent with Patient: Total time spent is greater than 50% in coordination of care (as documented) at patient's floor/unit and/or counseling patient: Coding Level of Care Code 52071 Initial Inpt Care Lvl 2 Diagnoses Postoperative urinary retention N99.89; R33.8
[2022-09-27 19:54] LABS: Appearance Urine Clear (Clear); Bilirubin Urine Negative (Negative); Blood Urine 2+ (Negative); Color Urine Yellow; Glucose Urine UA 1+ (Negative); Ketones Urine Negative (Negative); Leukocyte Esterase Urine Negative (Negative); Nitrite Urine Negative (Negative); Protein Urine Negative (Negative); Specific Gravity Urine 1.004 (1.000-1.030); Urobilinogen Urine Negative (Negative); pH Urine 6.5 (4.5-7.5)
[2022-09-27 20:09] LABS: Bacteria Urine Negative (Negative); Epithelial Cell Urine 0-5 /lpf (0-5); WBC Urine 0-5 /hpf (0-5)
[2022-09-27] MEDS: ATORVASTATIN 40 MG TAB PO SCH (20:11)
[2022-09-28] MEDS: KETOROLAC TROMETHAMINE 15 MG/ML VIAL IV SCH (05:23)
[2022-09-28] MEDS: ACETAMINOPHEN 500 MG TAB PO SCH (05:24)
--- NOTE | 2022-09-28 07:24 | Progress Notes ---
DATE OF PROGRESS NOTE: 09/28/2022 SUBJECTIVE: A 72-year-old gentleman, postoperative day 2 from right hip replacement. He is doing be tter this morning. Wanting to get home. There is no chest pain or shortness of breath. Not feeling dizzy or lightheaded. Had some difficulty voiding yesterday, but says he is voiding voluntarily tod ay without any problems. OBJECTIVE: VITAL SIGNS: Temperature 36.8. Vital signs are stable. PHYSICAL EXAMINATION: GENERAL: Shows a pleasant middle-aged male. He is sitting up in his bedside chair and looks comfort able. EXTREMITIES: Examination of the right hip reveals the dressing to be clean, dry, and intact. Leg le ngths were equal. Hip is located. He is neurologically intact. ASSESSMENT: A 72-year-old gentleman postoperative day 2 from right hip replacement, doing well. Vahid n is controlled. Hip is located. He is neurologically intact. The big issue is his urination and h e is apparently peeing/urinating quite well on his own. PLAN: 1. DVT prophylaxis to include thigh-high TEDs, SCDs, and aspirin twice a day. 2. PT/OT and weightbear as tolerated. Right total hip protocol. 3. Pain control, doing okay with current pain regimen. 4. Urinary retention, apparently improved. Follow up with urology as needed. 5. Disposition: Plan to discharge to home with some home health later today. Job ID: [id number]
--- NOTE | 2022-09-28 07:39 | Urology Progress Note ---
Date of Service September 28, 2022 Assessment & Plan (1) Postoperative urinary retention: Plan: He seems to be voiding better spontaneously. Urinary retention was likely a component of BPH exacerbated by anesthesia and decreased mobility with hip surgery. Would recommend he continue voiding spontaneously. Check PVR after each void and straight catheterize for volumes >400-500 ml. If he does not tolerate CIC, could place avelar catheter. We will arrange followup in the urology office. Continue tamsulosin for now. Urology will sign off, please call with questions or concerns. Admission and Anticipated Discharge Date Admission Date: September 26, 2022 Subjective Feeling well this morning has been voiding spontaneously for increasingly large volumes. denies any sense of fullness of the bladder. he would prefer to not have any catheter in place. Review of Systems Review of Systems: no fevers/chills Genitourinary: no dysuria Physical Exam Physical Exam: well-appearing, NAD Results & Data ([facility]) Vital Signs (Past 12 Hours) Vital Signs Temp Pulse Resp BP BP Pulse Ox O2 Del Method 09/28/22 07:10 36.6 C 91 H 16 139/88 94 Room Air 09/27/22 20:27 36.8 C 98 H 18 147/86 H 97 Room Air PG Care Time/CCT Total # of Minutes Spent Total Time Spent with Patient: Total time spent is greater than 50% in coordination of care (as documented) at patient's floor/unit and/or counseling patient: Coding Level of Care Code 78464 Subseq Hosp Care Lvl 1 Diagnoses Postoperative urinary retention N99.89; R33.8
[2022-09-28] MEDS: ASPIRIN 81 MG ECTAB PO SCH (08:34)
[2022-09-28] MEDS: ASCORBIC ACID 500 MG TAB PO SCH (08:34)
[2022-09-28] MEDS: LOSARTAN/HCTZ 50/12.5MG TAB PO SCH (08:34)
[2022-09-28] MEDS: TAMSULOSIN HCL 0.4 MG CAP PO SCH (08:34)
[2022-09-28] MEDS: MULTIVITAMIN TAB PO SCH (08:34)
[2022-09-28] MEDS: DOCUSATE SODIUM/SENNA 50/8.6MG TAB PO SCH (08:34)
[2022-09-28] MEDS: THIAMINE HCL 100 MG TAB PO SCH (08:35)
[2022-09-28] MEDS: FOLIC ACID 1 MG TAB PO SCH (08:35)
== END 2022-09-28 11:44 | disposition home health service (06) ==
LOC: 3W 05:02 → ASU 05:02